=== PATIENT | male | born 1940 | race Caucasian/White ===

== ENCOUNTER → 2021-05-08 | Outpatient (CLI) | payer MEDICARE, BC ==
--- NOTE | 2021-05-08 08:31 | REP ---
INDICATION: CONTUSION COMPARISON: None. 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 No acute fracture or dislocation. No subcutaneous emphysema or foreign body. IMPRESSION: Age-related degenerative changes. No acute fracture or dislocation. <Electronically signed by Edu Palomares > 05/08/21 [id number]
== END ==
LOC: M WUC 08:02
PROVIDERS: ATTEND Physician Assistant
DX: S50.11XA Contusion of right forearm, initial encounter (principal); W18.30XA Fall on same level, unspecified, initial encounter; Y92.009 Unspecified place in unspecified non-institutional (private) residence as the place of occurrence of the external cause